=== PATIENT | male | born 1955 | race Caucasian/White ===

== ENCOUNTER 2018-08-01 11:22 | Inpatient (IN) | payer BC ==
[2018-08-01 11:47] VITALS: BMI 27.3
--- NOTE | 2018-08-01 12:00 | PDOC ---
History of Present Illness <Mirna Maldonado - Last Filed: 08/01/18 15:58> - General History Source: Patient Exam Limitations: No Limitations - History of Present Illness Initial Comments: 08/01/18 11:56 62 yo male with h/o prior tobacco use ( quit 91), no pmhx here wtih c/o intermittent chest pain last few days. has had exertional dyspnea, orthpnea. no leg swelling. 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 no h/o prior cad. no family h/o cad. did have stress test over 5 yrs ago, unsure of indication. no n/v no f/c does have cough, nonproductive white phlegm. drinks occasionally ( few times/ week). no f/c no h/o pe or dvt. no recent travel. chest pain is substernal , describes as a burning, no radiation. <Terese Chan - Last Filed: 08/01/18 16:45> - General Chief Complaint: Chest Pain Stated Complaint: CHES PAIN Time Seen by Provider: 08/01/18 11:24 Past History <Mirna Maldonado - Last Filed: 08/01/18 15:58> - Past Medical History Anemia: No Asthma: No Cancer: No Cardiac Disorders: No COPD: No CHF: No Dementia: No Diabetes: No GI Disorders: Yes (RECTAL BLEEDING) Disorders: No HTN: No Hypercholesterolemia: No Liver Disease: No Seizures: No Thyroid Disease: No - Surgical History Abdominal Surgery: No Appendectomy: No Cardiac Surgery: No Cholecystectomy: No Lung Surgery: No Neurologic Surgery: No Orthopedic Surgery: Yes (JAW WIRED DUE TO FX) - Suicide/Smoking/Psychosocial Hx Smoking History: Former smoker Have you smoked in the past 12 months: No Number of Cigarettes Smoked Daily: 0 If you are a former smoker, when did you quit?: 1990 Information on smoking cessation initiated: No Hx Alcohol Use: No Drug/Substance Use Hx: No Substance Use Type: Alcohol Hx Substance Use Treatment: No <Terese Chan - Last Filed: 08/01/18 16:45> - Past Medical History Allergies/Adverse Reactions: Allergies Allergy/AdvReac Type Severity Reaction Status Date / Time UNKNOWN ANTIBIOTIC Allergy Intermediate CHILLS Uncoded 03/18/19 11:23 Home Medications: Ambulatory Orders Aspirin [ASA -] 162 mg PO ONCE 08/01/18 Ibuprofen [Motrin -] 400 mg PO ONCE PRN 08/01/18 Review of Systems - Review of Systems Constitutional: No: Chills, Diaphoresis, Fever Respiratory: Yes: Cough, Orthopnea, Shortness of Breath Cardiac (ROS): Yes: Chest Pain Musculoskeletal: No: Back Pain, Gout, Joint Pain, Muscle Weakness Integumentary: No: Bruising, Change in Color Neurological: No: Headache, Numbness All Other Systems: Reviewed and Negative <Terese Chan - Last Filed: 08/01/18 16:45> *Physical Exam - Vital Signs Last Vital Signs Temp Pulse Resp BP Pulse Ox 98.5 F 81 20 157/86 97 08/01/18 11:23 08/01/18 13:54 08/01/18 13:54 08/01/18 13:54 08/01/18 13:54 <Mirna Maldonado - Last Filed: 08/01/18 15:58> - Vital Signs Last Vital Signs Temp Pulse Resp BP Pulse Ox 98.5 F 89 20 159/95 99 08/01/18 11:23 08/01/18 11:23 08/01/18 11:23 08/01/18 11:23 08/01/18 11:23 - Physical Exam Comments: 08/01/18 11:58 awake alert lungs clear bilaterally heart rrr no mrg abd soft no puls mass. nt nd. ext wwp no edema. no calf tenderness. 2 +_ symmetric dp pulses. nuero alert oriented x 3. skin warm and dry. <Terese Chan - Last Filed: 08/01/18 16:45> Moderate Sedation - Procedure Monitoring Vital Signs: Procedure Monitoring Vital Signs Temperature 98.5 F 08/01/18 11:23 Pulse Rate 81 08/01/18 13:54 Respiratory Rate 20 08/01/18 13:54 Blood Pressure 157/86 08/01/18 13:54 O2 Sat by Pulse Oximetry (%) 97 08/01/18 13:54 <Mirna Maldonado - Last Filed: 08/01/18 15:58> - Procedure Monitoring Vital Signs: Procedure Monitoring Vital Signs Temperature 98.5 F 08/01/18 11:23 Pulse Rate 89 08/01/18 11:23 Respiratory Rate 20 08/01/18 11:23 Blood Pressure 159/95 08/01/18 11:23 O2 Sat by Pulse Oximetry (%) 99 08/01/18 11:23 <Terese Chan - Last Filed: 08/01/18 16:45> ED Treatment Course - LABORATORY CBC & Chemistry Diagram: 08/01/18 11:59 08/01/18 11:59 - ADDITIONAL ORDERS Additional order review: Laboratory Results 08/01/18 08/01/18 08/01/18 14:25 12:00 11:59 PT with INR 11.9 Cancelled INR 1.06 Cancelled PTT (Actin FS) Cancelled Sodium Potassium Chloride Carbon Dioxide Anion Gap BUN Creatinine Creat Clearance w eGFR Random Glucose Calcium Total Bilirubin AST ALT Alkaline Phosphatase Troponin I < 0.03 Total Protein Albumin 08/01/18 11:59 PT with INR INR PTT (Actin FS) Sodium 138 Potassium 4.0 Chloride 108 H Carbon Dioxide 24 Anion Gap 6 L BUN 14 Creatinine 0.7 Creat Clearance w eGFR 115.04 Random Glucose 107 H Calcium 8.5 Total Bilirubin 0.4 AST 17 ALT 16 Alkaline Phosphatase 58 Troponin I Total Protein 6.8 Albumin 3.8 08/01/18 11:59 RBC 2.91 L MCV 77.8 L MCHC 31.6 L RDW 16.9 H MPV 7.3 L Neutrophils % 65.0 Lymphocytes % 16.2 Monocytes % 14.3 H Eosinophils % 3.9 Basophils % 0.6 <Mirna Maldonado - Last Filed: 08/01/18 15:58> - LABORATORY CBC & Chemistry Diagram: 08/01/18 11:59 08/01/18 11:59 - RADIOLOGY Radiology Studies Ordered: Category Date Time Status CHEST PA & LAT [RAD] Stat Radiology 08/01/18 11:29 Ordered <Terese Chan - Last Filed: 08/01/18 16:45> Medical Decision Making - Medical Decision Making 08/01/18 15:58 Called [facility] twice, but went to [facility]. Will need to transfer to [facility]. <Mirna Maldonado - Last Filed: 08/01/18 15:58> - Medical Decision Making 08/01/18 11:59 62 yo male with no pmhx here with c/o chest pain, and associated sob x 3 days. took two asa prior to arrival. differental copd, chf, pna, acs, angina. plan ekg labs cxr will likely require admission for tele obs. could need stress test. 08/01/18 14:59 pt with anemia hgb 7, further question reveals pt with h/o diverticulosis and hemorrhoids. has noted bright red blood per rectum recently that he attributed to hemorhoids. denies melena. no abd pain. will require admission for transfusion hgb 7, 2 units prbc ordered. microblog for admission. pt sees dr mascorro, has seen dr vandana CHEN, many years ago for colonoscopy 08/01/18 15:11 d/w dr Killian, is out of Town for CME, told to admit to hospitalist. 08/01/18 16:22 was told to consult [facility] as no GI available at [place], awaiting call back from [facility] after several calls, will transfer to [facility]. d/w dr ha who will take the admission. 08/01/18 16:44 call from [facility], states should go to service its dr montes patient. will call dilcia back to inform of error. <Terese Chan - Last Filed: 08/01/18 16:45> *DC/Admit/Observation/Transfer <Mirna Maldonado - Last Filed: 08/01/18 15:58> - Discharge Dispostion Decision to Admit order: Yes <Terese Chan - Last Filed: 08/01/18 16:45> Diagnosis at time of Disposition: Anemia, GI bleed
[2018-08-01 12:19] LABS: BASO % 0.6 % (0-2.0); EOS % 3.9 % (0-4.5); HEMATOCRIT 22.7 % (35.4-49); HEMOGLOBIN 7.2 GM/dl (11.7-16.9); LYMPH % 16.2 % (8-40); MCH 24.6 pg (25.7-33.7); MCHC 31.6 g/dl (32.0-35.9); MEAN CELL VOLUME 77.8 fl (80-96); MEAN PLT VOLUME 7.3 fl (7.5-11.1); MONO % 14.3 % (3.8-10.2); PLATELET COUNT 337 K/MM3 (134-434); RBC 2.91 M/mm3 (4.00-5.60); RDW 16.9 % (11.9-15.9); WHITE BLOOD COUNT 6.2 K/mm3 (4.0-10.8)
[2018-08-01 12:21] LABS: ADD RBC MORPHOLOGY YES
[2018-08-01 12:29] LABS: ALBUMIN 3.8 g/dl (3.4-5.0); ALK PHOS 58 U/L (45-117); ANION GAP 6 MMOL/L (8-16); BILIRUBIN,TOTAL 0.4 mg/dl (0.2-1); BLOOD UREA NITROGEN 14 mg/dl (7-18); CALCIUM 8.5 mg/dl (8.5-10); CHLORIDE 108 mmol/L (98-107); CO2 24 mmol/L (21-32); CREATININE 0.7 mg/dl (0.55-1.3); GLUCOSE,RANDOM 107 mg/dl (74-106); SGOT/AST 17 U/L (15-37); SGPT/ALT 16 U/L (13-61); SODIUM 138 mmol/L (136-145); TOT PROT 6.8 g/dl (6.4-8.2)
[2018-08-01 12:56] LABS: ANISOCYTOSIS 1+; OVALOCYTE 1+
[2018-08-01 15:10] LABS: INR 1.06 (0.82-1.09); PROTHROMBIN TIME (PATIENT) 11.9 SEC (10.2-13.0)
[2018-08-01] MEDS ORDERED: ASPIRIN 81 MG CHEWABLE TABLETS PO ONE (16:48)
[2018-08-01] MEDS ORDERED: NITROGLYCERIN SUBLINGUAL 1/150 0.4 MG TAB SL PRN (16:51)
[2018-08-01] MEDS ORDERED: ACETAMINOPHEN 325 MG TABLET (FP) PO PRN (16:51)
--- NOTE | 2018-08-01 17:27 | HP ---
Admitting History and Physical - Primary Care Physician PCP: Dewayne Killian - Admission Chief Complaint: chest pain, SOB History of Present Illness: 62 year old Male with h/o diverticulosis and hemorrhoids reports 10days of blood with most bowel movements. Pt states he has a h/o hemorrhoids and figured that this was the reason for his blood loss. He reports similar symptoms 1 year ago in jun 2017 after starting Mobic for osteoarthritis, which resulted in rectal bleeding, symptoms resolved after discontinuing medication. His last C- scope was in 2013 and revealed diverticulosis and internal hemorrhoids. Mr. Miller reports 3 days after noticing moderate- large amount of bright red blood with bowel movements, he began to experience shortness of breath with activity. His symptoms later progressed to " waking from sleep, gasping for air " 10 mid-sternal chest burning, + frontal headache and lightheadedness. He denies N/V/palpitations. 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 In ED: BP 157/86mmHg, HR 81, T 98.5, RR 20, O2 sat 97%. Labs reveal: H/H 7.2/22.7 Stool for occult blood x 1 negative. CXR: no acute findings Pt ordered for 2units PRBC and admitted to [facility] for further management History Source: Patient Limitations to Obtaining History: No Limitations - Past Surgical History Additional Past Surgical History: Left zygomatic process fracture Laryngeal biopsy - Smoking History Smoking history: Former smoker Have you smoked in the past 12 months: No Aproximately how many cigarettes per day: 0 (2PPD x 10yrs) If you are a former smoker, when did you quit?: 1990 - Alcohol/Substance Use Hx Alcohol Use: Yes (4 glasses of vodka four nights per week) Number of Drinks Daily: 4 History of Substance Use: reports: None - Social History Usual Living Arrangement: Yes: Alone ADL: Independent Occupation: Technology Solutions Architect History of Recent Travel: No Other Social History: . Exercise: none Home Medications - Allergies Allergies/Adverse Reactions: Allergies Allergy/AdvReac Type Severity Reaction Status Date / Time No Known Allergies Allergy Verified 08/01/18 23:23 - Home Medications Home Medications: Ambulatory Orders Aspirin [ASA -] 162 mg PO ONCE 08/01/18 Ibuprofen [Motrin -] 400 mg PO ONCE PRN 08/01/18 Family Disease History - Family Disease History Family Disease History: Other: Father ( (59) throat cancer), Mother ( alive (88) well), Brother (alive (66) DMII), Sister (alive (53) drug use) Review of Systems - Review of Systems Constitutional: reports: Lethargy, Weakness Cardiovascular: reports: Chest Pain, Shortness of Breath Respiratory: reports: SOB on Exertion Gastrointestinal: reports: Rectal Bleeding Genitourinary: reports: No Symptoms Breasts: reports: No Symptoms Reported Musculoskeletal: reports: Muscle Weakness Integumentary: reports: No Symptoms Neurological: reports: Dizziness, Weakness Endocrine: reports: No Symptoms Hematology/Lymphatic: reports: No Symptoms Psychiatric: reports: No Symptoms Physical Examination Vital Signs: Vital Signs Temperature 98.5 F 08/01/18 11:23 Pulse Rate 81 08/01/18 13:54 Respiratory Rate 20 08/01/18 13:54 Blood Pressure 157/86 08/01/18 13:54 O2 Sat by Pulse Oximetry (%) 97 08/01/18 13:54 Constitutional: Yes: No Distress, Calm Eyes: Yes: Conjunctiva Clear, EOM Intact, PERRL HENT: Yes: Atraumatic, Normocephalic Neck: Yes: Supple, Trachea Midline Cardiovascular: Yes: Regular Rate and Rhythm Respiratory: Yes: Regular, CTA Bilaterally Gastrointestinal: Yes: Normal Bowel Sounds, Soft, Tenderness (LLQ) ...Rectal Exam: Yes: Guaiac Negative Renal/: Yes: WNL Breast(s): Yes: WNL Musculoskeletal: Yes: WNL Extremities: Yes: WNL Edema: No Peripheral Pulses WNL: Yes Peripheral Pulses: Left Radial: 2+, Right Radial: 2+, Left Doralis Pedis: 2+, Right Dorsalis Pedis: 2+ Integumentary: Yes: WNL Neurological: Yes: Alert, Oriented ...Motor Strength: WNL Psychiatric: Yes: Alert, Oriented Labs: CBC, BMP 08/01/18 11:59 08/01/18 11:59 Imaging - Results X-ray: Report Reviewed (CXR 08/01/2018 No acute chest pathology. Mild hyperaeration. No comparison studies.) Problem List - Problems (1) Elevated blood pressure reading Assessment/Plan: start losartan 50mg Code(s): R03.0 - ELEVATED BLOOD-PRESSURE READING, W/O DIAGNOSIS OF HTN (2) Prophylactic measure Assessment/Plan: SCDs OOB to chair Ambulate as tolerated senna/colace Code(s): Z29.9 - ENCOUNTER FOR PROPHYLACTIC MEASURES, UNSPECIFIED (3) Chest pain Assessment/Plan: cardiology consulted trend cardiac enzymes Cardiology consulted EKG PRN Code(s): R07.9 - CHEST PAIN, UNSPECIFIED (4) Shortness of breath on exertion Assessment/Plan: 2L NC PRN assess for symptom improvement once Hgb starts uptrending Code(s): R06.02 - SHORTNESS OF BREATH (5) Anemia Assessment/Plan: GI consult (Dr. Rivera) for bright red blood with bowel movement Code(s): D64.9 - ANEMIA, UNSPECIFIED (6) GI bleed Assessment/Plan: NPO gentle hydration with NS Protonix 40mg IVP BID Awaiting recommendations from GI Code(s): K92.2 - GASTROINTESTINAL HEMORRHAGE, UNSPECIFIED Assessment/Plan DISPO: full code Visit type - Emergency Visit Emergency Visit: Yes ED Registration Date: 08/01/18 Care time: The patient presented to the Emergency Department on the above date and was hospitalized for further evaluation of their emergent condition. - New Patient This patient is new to me today: No - Critical Care Critical Care patient: No
[2018-08-01] MEDS: SODIUM CHLORIDE 1,000 ML IV SCH (17:31)
--- NOTE | 2018-08-01 22:52 | EKG ---
Test Reason : Blood Pressure : / mmHG Vent. Rate : 088 BPM Atrial Rate : 088 BPM P-R Int : 140 ms QRS Dur : 086 ms QT Int : 378 ms P-R-T Axes : 059 -21 018 degrees QTc Int : 457 ms NORMAL SINUS RHYTHM SEPTAL INFARCT , AGE UNDETERMINED ABNORMAL ECG NO PREVIOUS ECGS AVAILABLE Confirmed by MONIQUE MILLAN, DK ([id number]) on 08/01/2018 10:52:06 PM Referred By: DR STOLL Confirmed By:DK AMAYA MD
[2018-08-01] MEDS ORDERED: METOCLOPRAMIDE HCL INJECTION 10 MG/2 ML VIAL IVPUSH PRN (23:24)
[2018-08-01] MEDS ORDERED: SENNOSIDES 8.6MG TABLET (FP) PO SCH (23:30)
[2018-08-02] MEDS: PANTOPRAZOLE SODIUM 40 MG VIAL IVPUSH SCH ×3 (01:28→21:44)
[2018-08-02] MEDS: DOCUSATE SODIUM 100 MG CAPSULE (FP) PO SCH ×3 (01:28→21:43)
[2018-08-02 06:30] LABS: HEMATOCRIT 26.5 % (35.4-49); HEMOGLOBIN 8.9 GM/dL (11.7-16.9); MCH 26.3 pg (25.7-33.7); MCHC 33.6 g/dl (32.0-35.9); MEAN CELL VOLUME 78.2 fl (80-96); MEAN PLT VOLUME 7.3 fl (7.5-11.1); PLATELET COUNT 275 K/MM3 (134-434); RBC 3.39 M/mm3 (4.00-5.60); RDW 17.8 % (11.9-15.9); WHITE BLOOD COUNT 6.9 K/mm3 (4.0-10.0)
[2018-08-02 07:17] LABS: ALBUMIN 3.5 g/dl (3.4-5.0); ALK PHOS 61 U/L (45-117); ANION GAP 6 MMOL/L (8-16); BILIRUBIN,TOTAL 1.9 mg/dL (0.2-1); BLOOD UREA NITROGEN 9 mg/dL (7-18); CHLORIDE 106 mmol/L (98-107); CHOLESTEROL 142 mg/dL (50-200); CO2 27 mmol/L (21-32); CREATININE 0.7 mg/dL (0.55-1.3); GLUCOSE,RANDOM 87 mg/dL (74-106); HDL CHOLESTEROL 64 mg/dL (40-60); N-TERMINAL BNP 160.6 pg/ml (5-125); PHOSPHOROUS 3.7 mg/dL (2.5-4.9); POTASSIUM 4.2 mmol/L (3.5-5.1); SGOT/AST 13 U/L (15-37); SGPT/ALT 17 U/L (13-61); SODIUM 139 mmol/L (136-145); TOT PROT 6.8 g/dl (6.4-8.2); TRIGLYCERIDES 69 mg/dL (0-150)
--- NOTE | 2018-08-02 08:56 | PN ---
Physical Exam: SUBJECTIVE: Patient seen and examined at the bedside. sitting up in bed, in no acute distress. has had no bm today, has been having symptoms of fatigue for about a week. chronically uses NSAIDS for back pain. 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 denies chest pain or shortness of breath OBJECTIVE: tylenol prn s/p 2 units of prbc with low but stable hmg/hct start clears await gi recommendations Vital Signs Period Temp Pulse Resp BP Sys/Anna Pulse Ox Last 24 Hr 98.0 F-98.9 F 57-98 18-20 117-169/65-97 97-100 GENERAL: The patient is awake, alert, and fully oriented, in no acute distress. HEAD: Normal with no signs of trauma. EYES: PERRL, extraocular movements intact, sclera anicteric, conjunctiva clear. No ptosis. ENT: Ears normal, nares patent, oropharynx clear without exudates, moist mucous membranes. NECK: Trachea midline, full range of motion, supple. LUNGS: Breath sounds equal, clear to auscultation bilaterally HEART: Regular rate and rhythm ABDOMEN: Soft, nontender, nondistended, normoactive bowel sounds, no guarding, no rebound, no hepatosplenomegaly, no masses. EXTREMITIES:no edema. NEUROLOGICAL: Normal speech, gait not observed. PSYCH: Normal mood, normal affect. SKIN: Warm, dry, normal turgor, no rashes or lesions noted Laboratory Results - last 24 hr 08/01/18 08/01/18 08/01/18 11:59 11:59 11:59 WBC 6.2 RBC 2.91 L Hgb 7.2 L Hct 22.7 L MCV 77.8 L MCH 24.6 L MCHC 31.6 L RDW 16.9 H Plt Count 337 MPV 7.3 L Absolute Neuts (auto) 4.1 Neutrophils % 65.0 Lymphocytes % 16.2 Monocytes % 14.3 H Eosinophils % 3.9 Basophils % 0.6 Hypochromia 2+ Polychromasia 1+ Anisocytosis 1+ Ovalocytes 1+ PT with INR INR PTT (Actin FS) Sodium 138 Potassium 4.0 Chloride 108 H Carbon Dioxide 24 Anion Gap 6 L BUN 14 Creatinine 0.7 Creat Clearance w eGFR 115.04 Random Glucose 107 H Hemoglobin A1c % Calcium 8.5 Phosphorus Magnesium Total Bilirubin 0.4 AST 17 ALT 16 Alkaline Phosphatase 58 Creatine Kinase Troponin I < 0.03 B-Natriuretic Peptide Total Protein 6.8 Albumin 3.8 Triglycerides Cholesterol Total LDL Cholesterol HDL Cholesterol Stool Occult Blood Blood Type Antibody Screen Crossmatch 08/01/18 08/01/18 08/01/18 12:00 14:25 14:25 WBC RBC Hgb Hct MCV MCH MCHC RDW Plt Count MPV Absolute Neuts (auto) Neutrophils % Lymphocytes % Monocytes % Eosinophils % Basophils % Hypochromia Polychromasia Anisocytosis Ovalocytes PT with INR Cancelled 11.9 INR Cancelled 1.06 PTT (Actin FS) Cancelled Sodium Potassium Chloride Carbon Dioxide Anion Gap BUN Creatinine Creat Clearance w eGFR Random Glucose Hemoglobin A1c % Calcium Phosphorus Magnesium Total Bilirubin AST ALT Alkaline Phosphatase Creatine Kinase Troponin I B-Natriuretic Peptide Total Protein Albumin Triglycerides Cholesterol Total LDL Cholesterol HDL Cholesterol Stool Occult Blood Blood Type O NEGATIVE Antibody Screen Crossmatch 08/01/18 08/01/18 08/02/18 14:32 18:25 05:30 WBC 6.9 RBC 3.39 L Hgb 8.9 L Hct 26.5 L MCV 78.2 L MCH 26.3 MCHC 33.6 RDW 17.8 H Plt Count 275 MPV 7.3 L Absolute Neuts (auto) Neutrophils % Lymphocytes % Monocytes % Eosinophils % Basophils % Hypochromia Polychromasia Anisocytosis Ovalocytes PT with INR INR PTT (Actin FS) Sodium Potassium Chloride Carbon Dioxide Anion Gap BUN Creatinine Creat Clearance w eGFR Random Glucose Hemoglobin A1c % Calcium Phosphorus Magnesium Total Bilirubin AST ALT Alkaline Phosphatase Creatine Kinase Troponin I B-Natriuretic Peptide Total Protein Albumin Triglycerides Cholesterol Total LDL Cholesterol HDL Cholesterol Stool Occult Blood Negative Blood Type O NEGATIVE Antibody Screen Negative Crossmatch See Detail 08/02/18 08/02/18 05:30 05:30 WBC RBC Hgb Hct MCV MCH MCHC RDW Plt Count MPV Absolute Neuts (auto) Neutrophils % Lymphocytes % Monocytes % Eosinophils % Basophils % Hypochromia Polychromasia Anisocytosis Ovalocytes PT with INR INR PTT (Actin FS) Sodium 139 Potassium 4.2 Chloride 106 Carbon Dioxide 27 Anion Gap 6 L BUN 9 Creatinine 0.7 Creat Clearance w eGFR 115.04 Random Glucose 87 Hemoglobin A1c % 5.2 Calcium 8.0 L Phosphorus 3.7 Magnesium 2.0 Total Bilirubin 1.9 H AST 13 L ALT 17 Alkaline Phosphatase 61 Creatine Kinase 70 Troponin I < 0.02 B-Natriuretic Peptide 160.6 H Total Protein 6.8 Albumin 3.5 Triglycerides 69 Cholesterol 142 Total LDL Cholesterol 70 HDL Cholesterol 64 H Stool Occult Blood Blood Type Antibody Screen Crossmatch Active Medications Generic Name Dose Route Start Last Admin Trade Name Freq PRN Reason Stop Dose Admin Acetaminophen 650 mg 08/01/18 16:51 Tylenol - PO Q6H PRN FEVER Docusate Sodium 100 mg 08/01/18 23:30 08/02/18 01:28 Colace - PO 100 mg BID YESSENIA Administration Sodium Chloride 1,000 mls @ 42 mls/hr 08/01/18 17:00 08/01/18 17:31 Normal Saline - IV 42 mls/hr ASDIR YESSENIA Administration Losartan Potassium 25 mg 08/02/18 10:00 Cozaar - PO DAILY YESSENIA Metoclopramide HCl 10 mg 08/01/18 23:24 Reglan Injection - IVPUSH Q8H PRN NAUSEA AND/OR VOMITING Nitroglycerin 0.4 mg 08/01/18 16:51 Nitrostat - SL Q5M PRN FOR CHEST PAIN Pantoprazole Sodium 40 mg 08/02/18 00:30 08/02/18 01:28 Protonix Iv IVPUSH 40 mg BID YESSENIA Administration Senna 2 tab 08/01/18 23:30 08/02/18 01:28 Senna - PO 2 tab HS YESSENIA Administration ASSESSMENT/PLAN: Patient is a 62 year old male with past medical history of diverticulosis and hemorrhoids who comes to the ED with c/o of 10 days of blood with most bowel movements. His last C-scope was in 2013 and revealed diverticulosis and internal hemorrhoids. GI: GI bleed/Blood loss anemia presents with symptomatic anemia and hmt/hct 7.2/22 stool occult blood negative. s/p 2 units of prbc with hmg hct now 8.9/26.5. protonix bid monitor output clears GI consulted Card: hypertension On no home meds, denies hx of htn started on lopressor here, monitor bp troponins negative to date fen clears monitor electrolytes no ivf prophy no a/c 2/2 to blood loss anemia protonix bid Visit type - Emergency Visit Emergency Visit: Yes ED Registration Date: 08/01/18 Care time: The patient presented to the Emergency Department on the above date and was hospitalized for further evaluation of their emergent condition. - New Patient This patient is new to me today: Yes Date on this admission: 08/02/18 - Critical Care Critical Care patient: No - Discharge Referral Referred to [facility] No
[2018-08-02] MEDS: LOSARTAN POTASSIUM 25 MG TABLET PO SCH (09:17)
--- NOTE | 2018-08-02 12:29 | CON.CARD ---
Consult Consult Specialty:: Cardiology Referred by:: Hospitalist Reason for Consultation:: Cardiac evaluation - History of Present Illness Chief Complaint: Shortness of breath and chest discomfort History of Present Illness: Patient is a 62 year old male with underlying history of diverticulosis and hemorrhoids who presents with blood loss during bowel movement. He states that he was given Mobic 1 year ago for osteoarthritis and had rectal bleeding which stopped after discontinuing the medication. He reports moderate to large amount of BRBPR with bowel movement. He also complained of mid sternal chest discomfort and shortness of breath with activity. Upon presentation in the ED, he was found with H/H of 7.2/22.7. He was given 2 units of PRBC with some improvement in his symptoms. Currently he denies chest pain, SOB or palpitations. He denies paroxysmal nocturnal dyspnea or orthopnea. He denies fever or chills. He denies nausea, vomiting, diarrhea or abdominal pain. He denies headache or lightheadedness. - History Source History Provided By: Patient, Medical Record Limitations to Obtaining History: No Limitations - Past Medical History Gastrointestinal: Yes: Diverticulosis, GI Bleed, Hemorrhoids - Past Surgical History Past Surgical History: Yes: Colonoscopy - Alcohol/Substance Use Hx Alcohol Use: Yes (4 glasses of vodka four nights per week) Number of Drinks Daily: 4 History of Substance Use: reports: None - Smoking History Smoking history: Former smoker Have you smoked in the past 12 months: No Aproximately how many cigarettes per day: 0 (2PPD x 10yrs) If you are a former smoker, when did you quit?: 1990 - Social History ADL: Independent Occupation: Imaging Tech History of Recent Travel: No Home Medications - Allergies Allergies/Adverse Reactions: Allergies Allergy/AdvReac Type Severity Reaction Status Date / Time No Known Allergies Allergy Verified 08/01/18 23:23 - Home Medications Home Medications: Ambulatory Orders Aspirin [ASA -] 162 mg PO ONCE 08/01/18 Ibuprofen [Motrin -] 400 mg PO ONCE PRN 08/01/18 Family Disease History - Family Disease History Family Disease History: Other: Father ( (59) throat cancer), Mother ( alive (88) well), Brother (alive (66) DMII), Sister (alive (53) drug use) Review of Systems - Review of Systems Constitutional: denies: Chills, Fever Cardiovascular: reports: Chest Pain, Shortness of Breath. denies: Palpitations Respiratory: reports: SOB. denies: Cough, Hemoptysis, Orthopnea, PND Gastrointestinal: reports: Rectal Bleeding. denies: Abdominal Pain, Constipation, Diarrhea, Melena, Nausea, Vomiting Musculoskeletal: denies: Back Pain Neurological: denies: Dizziness, Headache, Seizure, Syncope Vital Signs: Vital Signs Temperature 98.5 F 08/02/18 10:00 Pulse Rate 88 08/02/18 10:00 Respiratory Rate 20 08/02/18 10:00 Blood Pressure 157/79 08/02/18 10:00 O2 Sat by Pulse Oximetry (%) 98 08/02/18 09:00 Eyes: Yes: PERRL HENT: Yes: Atraumatic Neck: Yes: Supple Respiratory: Yes: CTA Bilaterally Gastrointestinal: Yes: Normal Bowel Sounds, Soft. No: Tenderness Cardiovascular: Yes: Regular Rate and Rhythm. No: Gallop JVD: No PMI: Non-Displaced Heart Sounds: Yes: S1, S2 Murmur: No: Systolic Murmur, Diastolic Murmur Edema: No - Other Data Labs, Other Data: CBC, BMP 08/02/18 05:30 08/02/18 05:30 INR, PTT INR 1.06 (0.82-1.09) 08/01/18 14:25 Troponin, BNP 08/01/18 08/02/18 11:59 05:30 Troponin I < 0.03 < 0.02 B-Natriuretic Peptide 160.6 H NSR, no ST-T abnormality Echo: Pending Imaging - Results Chest X-ray: Report Reviewed (Unremarkable) EKG: Report Reviewed Problem List - Problems (1) Diverticulosis Code(s): K57.90 - DVRTCLOS OF INTEST, PART UNSP, W/O PERF OR ABSCESS W/O BLEED (2) Hemorrhoid Code(s): K64.9 - UNSPECIFIED HEMORRHOIDS (3) Anemia Code(s): D64.9 - ANEMIA, UNSPECIFIED (4) Chest pain Code(s): R07.9 - CHEST PAIN, UNSPECIFIED (5) GI bleed Code(s): K92.2 - GASTROINTESTINAL HEMORRHAGE, UNSPECIFIED (6) Shortness of breath on exertion Code(s): R06.02 - SHORTNESS OF BREATH Assessment/Plan 1. GI bleed due to hemorrhoids, underlying diverticulosis 2. Chest pain and SOB due to anemia PLAN: 1. Proceed with GI work up cardiac standpoint. No absolute contraindication in view of absence of ischemic symptoms, decompensated congestive heart failure or malignant arrhythmia 2. Transfuse PRBC as needed and follow CBC 3. Echocardiography to assess LV/RV and valvular function Further plans are to follow Selwyn Mcarthur MD
--- NOTE | 2018-08-02 14:50 | ECHO ---
Name: DIAMOND VILLA Exam:Adult Echocardiogram Study Date: 08/02/2018 12:55 PM Age: 62 yrs Reason For Study: setting of sympomatic anemia Height: 69 in Weight: 183 lb BSA: 2.0 m2 MMode/2D Measurements & Calculations IVSd: 0.84 cm Ao root diam: 3.3 cm LVIDd: 4.2 cm LA dimension: 3.6 cm LVIDs: 3.1 cm ACS: 2.2 cm LVPWd: 1.2 cm IVSs: 1.2 cm LVPWs: 1.3 cm EDV(Teich): 80.3 ml ESV(Teich): 37.3 ml Doppler Measurements & Calculations MV E max tyrel: 70.3 cm/sec Ao V2 max: 154.6 cm/sec MV A max tyrel: 62.7 cm/sec Ao max P.6 mmHg MV E/A: 1.1 Ao V2 mean: 107.1 cm/sec Ao mean P.3 mmHg Ao V2 VTI: 30.2 cm MR max tyrel: 530.3 cm/sec TR max tyrel: 283.9 cm/sec MR max P.6 mmHg TR max P.2 mmHg PI end-d tyrel: 95.0 cm/sec Med Peak E' Tyrel: 6.6 cm/sec Med E/e': 10.6 Lat Peak E' Tyrel: 8.6 cm/sec Lat E/e': 8.2 Procedure A complete two-dimensional transthoracic echocardiogram was performed (2D, M-mode, Doppler and color flow Doppler). Left Ventricle The left ventricle is normal in size. There is borderline concentric left ventricular hypertrophy. Le ft ventricular systolic function is normal. Ejection Fraction = 60%. The transmitral spectral Doppler fl ow pattern is suggestive of impaired LV relaxation. The left ventricular wall motion is normal. Right Ventricle The right ventricle is normal in size and function. Atria Normal left and right atrial size and function. Mitral Valve The mitral valve is normal in structure and function. There is trace to mild mitral regurgitation. Tricuspid Valve The tricuspid valve is normal in structure and function. There is trace tricuspid regurgitation. Righ t ventricular systolic pressure is 37 mmhg. Aortic Valve There is trivial aortic valve thickening. No aortic regurgitation is present. Pulmonic Valve The pulmonic valve is not well visualized. Great Vessels The aortic root is normal size. Pericardium/Pleura There is no pericardial effusion. There is no pleural effusion. Interpretation Summary The left ventricle is normal in size. There is borderline concentric left ventricular hypertrophy. Left ventricular systolic function is normal. Ejection Fraction = 60%. The right ventricle is normal in size and function. There is trace tricuspid regurgitation. Right ventricular systolic pressure is 37 mmhg. There is trivial aortic valve thickening. There is trace to mild mitral regurgitation. MD Jeremías Gerardo 08/02/2018 02:50 PM
[2018-08-02] MEDS: SODIUM CHLORIDE 1,000 ML IV SCH (16:44)
--- NOTE | 2018-08-02 17:12 | CON.GI ---
Consult - History of Present Illness Chief Complaint: GI consult dictated. prep for colonoscopy / egd tomorrow. clear ;liquid diet. npo midnight - Alcohol/Substance Use Hx Alcohol Use: Yes (4 glasses of vodka four nights per week) Number of Drinks Daily: 4 History of Substance Use: reports: None - Smoking History Smoking history: Former smoker Have you smoked in the past 12 months: No Aproximately how many cigarettes per day: 0 (2PPD x 10yrs) If you are a former smoker, when did you quit?: 1990 - Social History ADL: Independent Occupation: [employer] History of Recent Travel: No Home Medications - Allergies Allergies/Adverse Reactions: Allergies Allergy/AdvReac Type Severity Reaction Status Date / Time No Known Allergies Allergy Verified 08/01/18 23:23 - Home Medications Home Medications: Ambulatory Orders Aspirin [ASA -] 162 mg PO ONCE 08/01/18 Ibuprofen [Motrin -] 400 mg PO ONCE PRN 08/01/18 Family Disease History - Family Disease History Family Disease History: Other: Father ( (59) throat cancer), Mother ( alive (88) well), Brother (alive (66) DMII), Sister (alive (53) drug use) Physical Exam-GI Vital Signs: Vital Signs Temperature 98.7 F 08/02/18 14:05 Pulse Rate 63 08/02/18 14:05 Respiratory Rate 20 08/02/18 14:05 Blood Pressure 135/75 08/02/18 14:05 O2 Sat by Pulse Oximetry (%) 98 08/02/18 09:00 Labs: CBC, BMP 08/02/18 05:30 08/02/18 05:30 INR, PTT INR 1.06 (0.82-1.09) 08/01/18 14:25
[2018-08-02] MEDS ORDERED: [UNRECOGNIZED DRUG - OTHER] PO ONE (18:18)
[2018-08-02] MEDS ORDERED: KCL PO ONE (18:18)
[2018-08-02] MEDS ORDERED: NACL PO ONE (18:18)
[2018-08-02] MEDS ORDERED: PEG 3350/NA SULF BICARB CL/KCL 4000 ML SOLN.RECON PO ONE (19:30)
--- NOTE | 2018-08-02 20:31 | CONS ---
GASTROINTESTINAL CONSULTATION DATE OF CONSULTATION: DATE OF DICTATION: 08/02/2018 The patient is a pleasant, 62-year-old man with a past medical history of diverticulosis and hemorrhoids. Apparently, he had a colonoscopy in 2012 or 2013, which revealed diverticulosis. He admits to having approximately a week of intermittent episodes of hematochezia. He admits to taking Mobic for osteoarthritis a year ago and having similar symptoms. He presented to the emergency room after he developed shortness of breath and chest pain over the past couple of days and lightheadedness with near syncope. In the ER, his hemoglobin was noted to be 7.2 with a hematocrit of 22.7. He denies any abdominal pain, hematemesis, nausea, vomiting, reflux symptoms, weight loss. He has never had an upper endoscopy in the past. PAST MEDICAL AND SURGICAL HISTORY: As listed in the HPI with the addition of laryngeal biopsy and a left zygomatic process fracture. SOCIAL HISTORY: He is a former smoker, quit in 1990. He drinks 4 glasses of vodka 4 times per week. No substance abuse. FAMILY HISTORY: There is no history of GI or gynecological malignancy. HOME MEDICATIONS: Aspirin and Motrin. ALLERGIES: No known drug allergies. REVIEW OF SYSTEMS: Negative except for pertinent positives in the HPI. PHYSICAL EXAMINATION: Vital Signs: Temperature 98, pulse 63, blood pressure 135/75, respiratory rate 12, pulse oximetry 98% on room air. General: No acute distress. HEENT: Anicteric sclera. Cardiovascular: S1, S2. Regular rate and rhythm. Lungs: Bilaterally clear to auscultation. Abdomen: Soft and nontender. Extremities: No edema. LABORATORY DATA: White blood cell count 6.9, hemoglobin 8.9 and hematocrit 26 (that is after 2 units of blood), admission hemoglobin 7.2 and hematocrit 22, MCV 78, platelet count 275. INR 1.06. Sodium 139, potassium 4.2, BUN 9, creatinine 0.7, total bilirubin 1.9, AST 13, ALT 17. Cardiac enzymes are negative x2. Chest x-ray revealed no acute chest pathology. IMPRESSION: Hematochezia with associated chest pain in the setting of antiplatelet regimen and non-steroidal anti-inflammatory drug therapy. Symptoms are most likely secondary to a lower gastrointestinal bleed, diverticulosis, or hemorrhoid. However, upper gastrointestinal source cannot be completely excluded at this time considering he has been on antiplatelet therapy as well as non-steroidal anti-inflammatory drug therapy. Hemodynamically stable without sign of an overt gastrointestinal bleed. RECOMMENDATION: Clear-liquid diet, PPI therapy. Will prep him for colonoscopy tomorrow and upper endoscopy. Cardiology followup with risk stratification; n.p.o. midnight. Risks of the procedure were explained in detail including, but not limited to, perforation, sedation, missed lesion, infection, and bleeding. DO SLIME LISA/[id number]
[2018-08-02] MEDS ORDERED: BISACODYL 5 MG TABLET.DR (FP) PO ONE (22:00)
[2018-08-03 06:44] LABS: BASO % 1.4 % (0-2.0); EOS % 4.4 % (0-4.5); HEMATOCRIT 28.6 % (35.4-49); HEMOGLOBIN 9.5 GM/dL (11.7-16.9); LYMPH % 16.2 % (8-40); MCH 25.7 pg (25.7-33.7); MCHC 33.2 g/dl (32.0-35.9); MEAN CELL VOLUME 77.4 fl (80-96); MEAN PLT VOLUME 7.3 fl (7.5-11.1); MONO % 14.6 % (3.8-10.2); NEUT % 63.4 % (42.8-82.8); PLATELET COUNT 295 K/MM3 (134-434); RBC 3.69 M/mm3 (4.00-5.60); RDW 17.8 % (11.9-15.9); WHITE BLOOD COUNT 6.8 K/mm3 (4.0-10.0)
[2018-08-03] MEDS: LOSARTAN POTASSIUM 25 MG TABLET PO SCH (09:40)
[2018-08-03] MEDS: PANTOPRAZOLE SODIUM 40 MG VIAL IVPUSH SCH (09:40)
--- NOTE | 2018-08-03 10:13 | PN ---
Physical Exam: SUBJECTIVE: Patient seen and examined at the bedside feels better. OBJECTIVE: for colonoscopy / egd today hmg/hct stable s/p 2 units of prbc with low but stable hmg/hct Vital Signs Period Temp Pulse Resp BP Sys/Anna Pulse Ox Last 24 Hr 97.8 F-98.7 F 63-74 20-20 118-149/60-81 100 GENERAL: The patient is awake, alert, and fully oriented, in no acute distress. HEAD: Normal with no signs of trauma. EYES: PERRL, extraocular movements intact, sclera anicteric, conjunctiva clear. No ptosis. ENT: Ears normal, nares patent, oropharynx clear without exudates, moist mucous membranes. NECK: Trachea midline, full range of motion, supple. LUNGS: Breath sounds equal, clear to auscultation bilaterally HEART: Regular rate and rhythm ABDOMEN: Soft, nontender, nondistended, normoactive bowel sounds, no guarding, no rebound, no hepatosplenomegaly, no masses. EXTREMITIES:no edema. NEUROLOGICAL: Normal speech, gait not observed. PSYCH: Normal mood, normal affect. SKIN: Warm, dry, normal turgor, no rashes or lesions noted Laboratory Results - last 24 hr 08/01/18 08/03/18 14:32 05:30 WBC 6.8 RBC 3.69 L Hgb 9.5 L Hct 28.6 L MCV 77.4 L MCH 25.7 MCHC 33.2 RDW 17.8 H Plt Count 295 MPV 7.3 L Absolute Neuts (auto) 4.3 Neutrophils % 63.4 Lymphocytes % 16.2 Monocytes % 14.6 H Eosinophils % 4.4 Basophils % 1.4 Nucleated RBC % 0 Blood Type O NEGATIVE Antibody Screen Negative Crossmatch See Detail Active Medications Generic Name Dose Route Start Last Admin Trade Name Freq PRN Reason Stop Dose Admin Acetaminophen 650 mg 08/01/18 16:51 Tylenol - PO Q6H PRN FEVER Docusate Sodium 100 mg 08/01/18 23:30 08/02/18 21:43 Colace - PO 100 mg BID YESSENIA Administration Losartan Potassium 25 mg 08/02/18 10:00 08/03/18 09:40 Cozaar - PO 25 mg DAILY YESSENIA Administration Metoclopramide HCl 10 mg 08/01/18 23:24 Reglan Injection - IVPUSH Q8H PRN NAUSEA AND/OR VOMITING Nitroglycerin 0.4 mg 08/01/18 16:51 Nitrostat - SL Q5M PRN FOR CHEST PAIN Pantoprazole Sodium 40 mg 08/02/18 00:30 08/03/18 09:40 Protonix Iv IVPUSH 40 mg BID YESSENIA Administration Senna 2 tab 08/01/18 23:30 08/02/18 01:28 Senna - PO 2 tab HS YESSENIA Administration ASSESSMENT/PLAN: Patient is a 62 year old male with past medical history of diverticulosis and hemorrhoids who comes to the ED with c/o of 10 days of blood with most bowel movements. His last C-scope was in 2013 and revealed diverticulosis and internal hemorrhoids. GI: GI bleed/Blood loss anemia, presents with symptomatic anemia and hmt/hct 7.2/22 stool occult blood negative. s/p 2 units of prbc with hmg hct now 9.5/28.6 protonix bid monitor output npo for colonoscopy and egd today Card: hypertension On no home meds, denies hx of htn started on lopressor here, monitor bp troponins negative to date fen npo monitor electrolytes no ivf prophy no a/c 2/2 to blood loss anemia protonix bid Visit type - Emergency Visit Emergency Visit: Yes ED Registration Date: 08/01/18 Care time: The patient presented to the Emergency Department on the above date and was hospitalized for further evaluation of their emergent condition. - New Patient This patient is new to me today: No - Critical Care Critical Care patient: No - Discharge Referral Referred to [facility] Med P.C.: No
--- NOTE | 2018-08-03 14:24 | PN ---
Progress Note (short form) - Note Progress Note: EGD and colonoscopy performed today. EGD revealing antral and duodenal bulb erythema, biopsies taken r/o H pylori. Diminutive gastric body polyps likely fundic gland,biopsied. Otherwise normal EGD. Colonoscopy revealing sigmoid diverticulosis with surrounding patchy erythema and erosions, ?segmental colitis associated with diverticular disease vs prep related, biopsies taken. Internal/external hemorrhoids also seen, likely source of intermittent rectal bleeding. See scanned reports for full details. Recommendations: -Continue to closely monitor Hb and for evidence of bleeding -Follow up pathology results -Avoid NSAIDs -While hemorrhoidal bleeding could cause significant anemia with microcytosis, recommend check iron studies/ferritin on pretransfusion labs if possible. Pt may require capsule endoscopy for further evaluation. -Outpatient GI follow up on discharge Discussed with patient after the procedure.
--- NOTE | 2018-08-03 14:29 | PN ---
Progress Note, Physician History of Present Illness: Chest pain and dyspnea resolved post transfusion, Hgb stable, EGD and colonoscopy performed today. EGD revealing antral and duodenal bulb erythema, biopsies taken r/o H pylori. Diminutive gastric body polyps likely fundic gland , biopsied. Otherwise normal EGD. Colonoscopy revealing sigmoid diverticulosis with surrounding patchy erythema and erosions, ?segmental colitis associated with diverticular disease vs prep related, biopsies taken. Internal/external hemorrhoids also seen, likely source of intermittent rectal bleeding. - Current Medication List Current Medications: Active Medications Acetaminophen (Tylenol -) 650 mg PO Q6H PRN PRN Reason: FEVER Docusate Sodium (Colace -) 100 mg PO BID [facility] Last Admin: 08/02/18 21:43 Dose: 100 mg Losartan Potassium (Cozaar -) 25 mg PO DAILY [facility] Last Admin: 08/03/18 09:40 Dose: 25 mg Metoclopramide HCl (Reglan Injection -) 10 mg IVPUSH Q8H PRN PRN Reason: NAUSEA AND/OR VOMITING Nitroglycerin (Nitrostat -) 0.4 mg SL Q5M PRN PRN Reason: FOR CHEST PAIN Pantoprazole Sodium (Protonix Iv) 40 mg IVPUSH BID [facility] Last Admin: 08/03/18 09:40 Dose: 40 mg Senna (Senna -) 2 tab PO HS [facility] Last Admin: 08/02/18 01:28 Dose: 2 tab - Objective Vital Signs: Vital Signs Temperature 98.3 F 08/03/18 12:30 Pulse Rate 60 08/03/18 13:00 Respiratory Rate 16 08/03/18 13:00 Blood Pressure 134/73 08/03/18 13:00 O2 Sat by Pulse Oximetry (%) 100 08/03/18 13:00 Constitutional: Yes: No Distress, Calm, Thin Neck: Yes: Supple Cardiovascular: Yes: Regular Rate and Rhythm Respiratory: Yes: Regular, CTA Bilaterally Gastrointestinal: Yes: Soft, Hypoactive Bowel Sounds Edema: No Labs: CBC, BMP 08/03/18 05:30 08/02/18 05:30 INR, PTT INR 1.06 (0.82-1.09) 08/01/18 14:25 - ....Imaging EKG: Report Reviewed (Tele: NSR) Problem List - Problems (1) Anemia Code(s): D64.9 - ANEMIA, UNSPECIFIED Qualifiers: Iron deficiency anemia type: chronic blood loss (2) Chest pain Code(s): R07.9 - CHEST PAIN, UNSPECIFIED Qualifiers: Chest pain type: precordial pain Qualified Code(s): R07.2 - Precordial pain (3) Diverticulosis Code(s): K57.90 - DVRTCLOS OF INTEST, PART UNSP, W/O PERF OR ABSCESS W/O BLEED (4) GI bleed Code(s): K92.2 - GASTROINTESTINAL HEMORRHAGE, UNSPECIFIED Qualifiers: GI bleed type/associated pathology: anorectal hemorrhage Qualified Code(s) : K62.5 - Hemorrhage of anus and rectum (5) Hemorrhoid Code(s): K64.9 - UNSPECIFIED HEMORRHOIDS Qualifiers: Hemorrhoid type: unspecified Qualified Code(s): K64.9 - Unspecified hemorrhoids (6) Shortness of breath on exertion Code(s): R06.02 - SHORTNESS OF BREATH Assessment/Plan 08/02/2018 Echo: Normal LV and RV size and fcn, borderling cLVH LVEF 60%, tr- mild MR 08/03/2018 EGD and colonoscopy performed today. EGD revealing antral and duodenal bulb erythema, biopsies taken r/o H pylori. Diminutive gastric body polyps likely fundic gland,biopsied. Otherwise normal EGD. Colonoscopy revealing sigmoid diverticulosis with surrounding patchy erythema and erosions, ?segmental colitis associated with diverticular disease vs prep related, biopsies taken. Internal/external hemorrhoids also seen, likely source of intermittent rectal bleeding. See scanned reports for full details. 1. GI bleed due to internal/external hemorrhoids, underlying sigmoid diverticulosis 2. Chest pain and SOB due to anemia since resolved PLAN: 1. Hgb stable post-transfusion 2. F/u pathology, avoid NSAIDs, outpatient capsule endoscopy 3. D/c planning with f/u in office for stress testing r/o ischemia
[2018-08-03 15:50] VITALS: BP 93/66; PULSE 78; TEMP 98.4
--- NOTE | 2018-08-03 16:03 | DS ---
Physical Exam: SUBJECTIVE: Patient seen and examined at the bedside. wants to go home. does not want to stay til tomorrow to monitor his CBC. Made appointment for him to follow up with the covering physician for Dr. Killian (Dr. Demi Elizabeth) for a repeat CBC. Instructed patient and son that patient is not to take any NSAIDS for pain, instead should take Tylenol. OBJECTIVE: Vital Signs Period Temp Pulse Resp BP Sys/Anna Pulse Ox Last 24 Hr 97.8 F-98.6 F 60-83 16-20 93-149/60-85 100-100 PHYSICAL EXAM GENERAL: The patient is awake, alert, and fully oriented, in no acute distress. HEAD: Normal with no signs of trauma. EYES: PERRL, extraocular movements intact, sclera anicteric, conjunctiva clear. No ptosis. ENT: Ears normal, nares patent, oropharynx clear without exudates, moist mucous membranes. NECK: Trachea midline, full range of motion, supple. LUNGS: Breath sounds equal, clear to auscultation bilaterally HEART: Regular rate and rhythm ABDOMEN: Soft, nontender, nondistended, normoactive bowel sounds, no guarding, no rebound, no hepatosplenomegaly, no masses. EXTREMITIES:no edema. NEUROLOGICAL: Normal speech, gait not observed. PSYCH: Normal mood, normal affect. SKIN: Warm, dry, normal turgor, no rashes or lesions noted LABS Laboratory Results - last 24 hr 08/03/18 05:30 WBC 6.8 RBC 3.69 L Hgb 9.5 L Hct 28.6 L MCV 77.4 L MCH 25.7 MCHC 33.2 RDW 17.8 H Plt Count 295 MPV 7.3 L Absolute Neuts (auto) 4.3 Neutrophils % 63.4 Lymphocytes % 16.2 Monocytes % 14.6 H Eosinophils % 4.4 Basophils % 1.4 Nucleated RBC % 0 HOSPITAL COURSE: Date of Admission:08/01/18 Date of Discharge: 08/03/18 Patient is a 62 year old male with a significant past medical history of diverticulosis and hemorrhoids who comes to the ED with reports of 10 days of blood with most bowel movements. Pt stated he has a h/o hemorrhoids and figured that this was the reason for his blood loss. He reports similar symptoms 1 year ago in jun 2017 after starting Mobic for osteoarthritis, which resulted in rectal bleeding, symptoms resolved after discontinuing medication. His last C- scope was in 2013 and revealed diverticulosis and internal hemorrhoids. He was admitted for GI bleed and treated with 3 units of PRBC for his acute blood loss anemia. His hemaglobin and hematocrit are more stable, but will require close monitoring outpatient. An appointment for this WednesdayJuly 08 @ 10:30 was made with his PCP office. Hospital course by problem list: GI: Acute GI bleed/Blood loss anemia presents with symptomatic anemia and hmt/hct 7.2/22. stool occult blood negative. s/p 2 units of prbc with hmg hct now 9.5/28.6 protonix bid to continue as an outpatient. Stop protonix bid when instructed by GI. per GI: "EGD revealing antral and duodenal bulb erythema, biopsies taken r/o H pylori. Diminutive gastric body polyps likely fundic gland,biopsied. Otherwise normal EGD. Colonoscopy revealing sigmoid diverticulosis with surrounding patchy erythema and erosions, ?segmental colitis associated with diverticular disease vs prep related, biopsies taken. Internal/external hemorrhoids also seen , likely source of intermittent rectal bleeding. See scanned reports for full details" Recommendations: Patient to follow up with PCP for CBC on August 05 @ 10;30. appointment made by me. Patient and son instructed to follow up with GI for pathology report Further instructed not to take aleve, motrin, aspirin, or any product that contains NSAIDs. Patient to follow up with his PCP for further hematology testing Follow up for possible capsule endoscopy as an outpatient. Cardiology: hypertension. on no home medications. Started on lopressor here but BP lower today. Will defer anti hypertensives at the moment as he has a follow up with his PCP and this can be addressed as an outpatient. He will follow up with Dr. Suarez for a stress test outpatient. Discharge: All medications called into his pharmacy Signs of bleeding discussed with patient as well as reason to return to the ER Minutes to complete discharge: 50 Discharge Summary Reason For Visit: ANEMIA,CHEST PAIN Current Active Problems Anemia (Acute) Chest pain (Acute) Diverticulosis (Acute) Elevated blood pressure reading (Acute) GI bleed (Acute) Hemorrhoid (Acute) Prophylactic measure (Acute) Shortness of breath on exertion (Acute) Condition: Improved - Instructions Diet, Activity, Other Instructions: Mr. Miller: You were admitted for a GI bleed and you were given blood during your stay. Your hemaglobin is more stable. You also had a colonoscopy today with a EGD also. Here are our recommendations: GI bleed: You had a colonoscopy today and an EGD. Biopsies were taken, therefore, please call the physician for follow up of your results. DO NOT TAKE ASPIRIN, MOTRIN, ALEVE. no NSAIDS. These medications can cause you to re-bleed. You will need a CAPSULE Endoscopy to further evaluate. A capsule endoscopy is done as an outpatient. We need you to follow up with Dr. Demi Elizabeth for a repeat of your CBC on: Wednesday at 10:30. Dr. Demi Elizabeth. [address] [place] [address]. Call the office to confirm this appointment. Cardiology: You will need a stress test. Please call Dr. Suarez to make an appointment. [phone] Hypertension: Please have your BP re checked with your primary care doctor to determine if you still need hypertensive medications. Thank you for allowing us to care for you. Please return to the ER if you experience - dark black stools - shortness of breath - start to have bright red blood per rectum New medications: Protonix 40mg at 7am and 7pm twice per day. Follow up with the GI specialist on when to stop taking this medication. colace, senna. this are stool softener for prevention of hard stools that can irritate hemorrhoids Shanice Rincon [place] [employer] [facility] [phone] Referrals: Dewayne Killian MD [Staff Physician] - (follow up for a CBC -> ) Nalini Umanzor DO [Staff Physician] - (call for an appointment) Edd Suarez MD [Staff Physician] - (call for an appointment) Disposition: HOME - Home Medications Comprehensive Discharge Medication List: Ambulatory Orders Docusate Sodium [Colace -] 100 mg PO BID #90 capsule 08/03/18 Pantoprazole Sodium [Protonix] 40 mg PO BID #60 tablet. 08/03/18 Sennosides [Senna -] 2 tab PO HS #60 tablet 08/03/18 This patient is new to me today: Yes Date on this admission: 08/03/18 Emergency Visit: No Critical Care patient: No - Discharge Referral Referred to [facility] Med P.C.: No
--- NOTE | 2018-08-05 16:55 | PATH ---
Surgical Pathology Report Patient Name: DIAMOND VILLA [facility]. Rec. #: [id number] /Age/Gender: 1955 (Age: 62) / M Account: [id number] Location: 4 W TELEMETRY U Taken: 08/03/2018 Received: 08/03/2018 Reported: 08/05/2018 Physicians: Judi Alejandra MD Specimen(s) Received A: ANTRUM B: GASTRIC POLYP C: SIGMOID COLON Clinical History Rectal bleeding Final Diagnosis A. STOMACH, ANTRUM, BIOPSY: GASTRIC ANTRAL MUCOSA WITH MILD CHRONIC GASTRITIS. IMMUNOHISTOCHEMICAL STAIN FOR H. PYLORI IS NEGATIVE. DETACHED AGGREGATES OF SQUAMOUS EPITHELIUM WITH REACTIVE CELLULAR CHANGES AND FUNGAL FORMS HIGHLIGHTED BY PAS SPECIAL STAIN, MORPHOLOGICALLY CONSISTENT WITH AVERY SPECIES. B. GASTRIC POLYP, BIOPSY: FUNDIC GLAND POLYP. IMMUNOHISTOCHEMICAL STAIN FOR H. PYLORI IS NEGATIVE. C. SIGMOID COLON, BIOPSY: COLONIC MUCOSA WITH PROMINENT LYMPHOID AGGREGATE AND MILD EXTRAVASATION OF RED BLOOD CELLS WITHIN LAMINA PROPRIA. Electronically Signed Nalini Lawrence M.D. Gross Description A. Received in formalin, labeled "antrum" are 3 padilla, irregular portions of soft tissue measuring 0.1-0.3 cm. in greatest dimension. The specimens are submitted in toto in one cassette. B. Received in formalin, labeled "gastric polyp" is a padilla, irregular portion of soft tissue measuring 0.4 cm. in greatest dimension. The specimen is submitted in toto in one cassette. C. Received in formalin, labeled "sigmoid colon" are 4 padilla, irregular portions of soft tissue measuring 0.1-0.3 cm. in greatest dimension. The specimens are submitted in toto in one cassette. MLSZ/08/03/2018 sanml/08/03/2018
== END 2018-08-03 17:37 | disposition home or self-care (01) | DRG 394 ==
LOC: FER 11:22 → J4W 22:30
PROVIDERS: ADMIT Internal Medicine; ATTEND Nurse Practitioner Family
PROC: 30233N1 Transfusion of Nonautologous Red Blood Cells into Peripheral Vein, Percutaneous Approach (ICD-10-PCS; 2018-08-01)
PROC: 0DBN8ZX Excision of Sigmoid Colon, Via Natural or Artificial Opening Endoscopic, Diagnostic (ICD-10-PCS; 2018-08-03)
PROC: 0DB68ZX Excision of Stomach, Via Natural or Artificial Opening Endoscopic, Diagnostic (ICD-10-PCS; principal; 2018-08-03 11:30)
DX: K64.8 Other hemorrhoids (principal); K92.2 Gastrointestinal hemorrhage, unspecified; D62 Acute posthemorrhagic anemia; R07.89 Other chest pain; R03.0 Elevated blood-pressure reading, without diagnosis of hypertension; D64.9 Anemia, unspecified; I10 Essential (primary) hypertension; K57.90 Diverticulosis of intestine, part unspecified, without perforation or abscess without bleeding; Z87.891 Personal history of nicotine dependence; K64.9 Unspecified hemorrhoids; K63.5 Polyp of colon
CPT/HCPCS: 36415; 36430; 36511; 71046-TC-FY; 80053; 80061; 82272; 82550; 83036; 83721; 83735; 83880; 84100; 84484; 85025; 85027; 85610; 86850; 86900; 86901; 86922; 88305-TC; 93005; 93306-TC; 99285-25; J7030; P9038; P9058

== ENCOUNTER 2018-09-06 16:35 | Emergency (ER) | payer BC ==
--- NOTE | 2018-09-06 16:51 | PDOC ---
History of Present Illness - General Chief Complaint: Chest Pain Stated Complaint: SHORTNESS OF BREATH DURING NIGHT AND SOME CHEST Time Seen by Provider: 09/06/18 16:50 - History of Present Illness Initial Comments: 09/06/18 17:32 62yo M recent admission GIB requiring transfusion x2, no other medical hx presents to the ED with 2 days of nocturnal SOB and daytime headaches. Reports he wakes up at night very dyspneic, requiring him to sit up, gasp and need to sit at the side of the bed. This has happened multiple times per night for the last 2 nights. Also reports external cp that is worse when he pushes onto his chest that began while playing golf 3 days ago. No other sxs weakness, bleeding, dark stools Social hx: previous smoker, social drinker PSH: reconstructed jaw, throat biopsy Past History - Past Medical History Allergies/Adverse Reactions: Allergies Allergy/AdvReac Type Severity Reaction Status Date / Time No Known Allergies Allergy Unverified 09/06/18 16:39 Home Medications: Ambulatory Orders Sennosides [Senna -] 2 tab PO HS 09/06/18 Anemia: No Asthma: No Cancer: No Cardiac Disorders: No COPD: No CHF: No Dementia: No Diabetes: No GI Disorders: Yes (RECTAL BLEEDING) Disorders: No HTN: No Hypercholesterolemia: No Liver Disease: No Seizures: No Thyroid Disease: No - Surgical History Abdominal Surgery: No Appendectomy: No Cardiac Surgery: No Cholecystectomy: No Lung Surgery: No Neurologic Surgery: No Orthopedic Surgery: Yes (JAW WIRED DUE TO FX) - Suicide/Smoking/Psychosocial Hx Smoking History: Former smoker Have you smoked in the past 12 months: No Number of Cigarettes Smoked Daily: 0 (2PPD x 10yrs) If you are a former smoker, when did you quit?: 1990 'Breaking Loose' booklet given: 08/01/18 Hx Alcohol Use: Yes (4 glasses of vodka four nights per week) Drug/Substance Use Hx: No Substance Use Type: Alcohol Hx Substance Use Treatment: No Heart Score/ECG Review - History History: Slightly suspicious - Electrocardiogram EKG: Non specific repolarization disturbance - Age Age: 45-65 - Risk Factors Risk Factors Heart Score: Yes Smoking History Based on the list above the patient has:: 1-2 risk factors - Troponin Troponin: </= normal limit - Score Heart Score - Total: 3 *DC/Admit/Observation/Transfer - Discharge Dispostion Condition at time of disposition: Stable - Referrals Referrals: Demi Elizabeth [Primary Care Provider] - - Patient Instructions - Post Discharge Activity
[2018-09-06 16:55] VITALS: TEMP 97.8; BMI 27.3
[2018-09-06 18:20] LABS: BASO % 1.2 % (0-2.0); EOS % 3.4 % (0-4.5); HEMATOCRIT 31.6 % (35.4-49); HEMOGLOBIN 9.8 GM/dl (11.7-16.9); LYMPH % 16.6 % (8-40); MCH 22.7 pg (25.7-33.7); MCHC 30.8 g/dl (32.0-35.9); MEAN CELL VOLUME 73.7 fl (80-96); MEAN PLT VOLUME 7.8 fl (7.5-11.1); MONO % 10.2 % (3.8-10.2); NEUT % 68.6 % (42.8-82.8); PLATELET COUNT 325 K/MM3 (134-434); RBC 4.29 M/mm3 (4.00-5.60); WHITE BLOOD COUNT 8.5 K/mm3 (4.0-10.8)
[2018-09-06 18:22] LABS: ACTIVATED PTT 25.9 SECONDS (25.2-36.5)
[2018-09-06 18:24] LABS: ADD RBC MORPHOLOGY YES
[2018-09-06 18:26] LABS: ALBUMIN 4.1 g/dl (3.4-5.0); ALK PHOS 62 U/L (45-117); ANION GAP 8 MMOL/L (8-16); BILIRUBIN,TOTAL 0.7 mg/dl (0.2-1); BLOOD UREA NITROGEN 12 mg/dl (7-18); CALCIUM 8.9 mg/dl (8.5-10); CHLORIDE 105 mmol/L (98-107); CO2 27 mmol/L (21-32); CREATININE 0.7 mg/dl (0.55-1.3); GLUCOSE,RANDOM 96 mg/dl (74-106); POTASSIUM 4.2 mmol/L (3.5-5.1); SGOT/AST 17 U/L (15-37); SGPT/ALT 16 U/L (13-61); SODIUM 140 mmol/L (136-145); TOT PROT 7.5 g/dl (6.4-8.2)
[2018-09-06 18:27] LABS: INR 1.11 (0.82-1.09); PROTHROMBIN TIME (PATIENT) 12.4 SEC (10.2-13.0)
[2018-09-06 19:24] LABS: ANISOCYTOSIS 1+
[2018-09-06 19:25] LABS: PLATELET ESTIMATE ADEQUATE
[2018-09-06 21:10] VITALS: BP 125/80; PULSE 68
--- NOTE | 2018-09-06 21:23 | PDOC ---
*Physical Exam - Vital Signs Last Vital Signs Temp Pulse Resp BP Pulse Ox 97.8 F 68 16 125/80 98 09/06/18 16:36 09/06/18 21:04 09/06/18 21:04 09/06/18 19:56 09/06/18 21:04 ED Treatment Course - LABORATORY CBC & Chemistry Diagram: 09/06/18 17:55 09/06/18 17:56 - ADDITIONAL ORDERS Additional order review: Laboratory Results 09/06/18 09/06/18 09/06/18 20:37 17:56 17:56 PT with INR INR PTT (Actin FS) D-Dimer < 215 Sodium Potassium Chloride Carbon Dioxide Anion Gap BUN Creatinine Creat Clearance w eGFR Random Glucose Calcium Magnesium Total Bilirubin AST ALT Alkaline Phosphatase Creatine Kinase Troponin I < 0.03 B-Natriuretic Peptide 68.5 Total Protein Albumin 09/06/18 09/06/18 09/06/18 17:56 17:55 17:55 PT with INR 12.4 INR 1.11 PTT (Actin FS) 25.9 D-Dimer Sodium 140 Potassium 4.2 Chloride 105 Carbon Dioxide 27 Anion Gap 8 BUN 12 Creatinine 0.7 Creat Clearance w eGFR 115.04 Random Glucose 96 Calcium 8.9 Magnesium 2.0 Total Bilirubin 0.7 AST 17 ALT 16 Alkaline Phosphatase 62 Creatine Kinase 76 Troponin I B-Natriuretic Peptide Total Protein 7.5 Albumin 4.1 09/06/18 17:55 PT with INR INR PTT (Actin FS) D-Dimer Sodium Potassium Chloride Carbon Dioxide Anion Gap BUN Creatinine Creat Clearance w eGFR Random Glucose Calcium Magnesium Total Bilirubin AST ALT Alkaline Phosphatase Creatine Kinase Troponin I < 0.03 B-Natriuretic Peptide Total Protein Albumin 09/06/18 17:55 RBC 4.29 MCV 73.7 L MCHC 30.8 L RDW 18.0 H MPV 7.8 Neutrophils % 68.6 Lymphocytes % 16.6 Monocytes % 10.2 Eosinophils % 3.4 Basophils % 1.2 Progress Note - Progress Note Progress Note: Care of this patient received from . Patient presented with a few day history of episodes of nocturnal dyspnea, awakening him from sleep. Laboratory evaluation including troponin/BNP/d-dimer all essentially normal. Repeat troponin 3 hours after initial draw also nonelevated Patient discharged without new complaints with plan to follow-up with Dr. Elizabeth (patient will call in the morning to arrange follow-up appointment). Cardiac stress test is already scheduled for approximately 2 weeks from now. Meanwhile, if he experiences any persistent shortness of breath, chest pain or palpitations, he should return to the ER *DC/Admit/Observation/Transfer Diagnosis at time of Disposition: Nocturnal dyspnea - Discharge Dispostion Disposition: HOME Condition at time of disposition: Stable - Referrals Referrals: Demi Elizabeth [Primary Care Provider] - Call tomorrow - Patient Instructions Printed Discharge Instructions: DI for Shortness of Breath Additional Instructions: Call Dr. Elizabeth tomorrow as discussed and follow up as arranged Return to ER if you have persistent, severe shortness of breath or develop chest pain - Post Discharge Activity
--- NOTE | 2018-09-07 09:42 | EKG ---
Test Reason : Blood Pressure : / mmHG Vent. Rate : 067 BPM Atrial Rate : 067 BPM P-R Int : 146 ms QRS Dur : 084 ms QT Int : 436 ms P-R-T Axes : 064 -20 -02 degrees QTc Int : 460 ms NORMAL SINUS RHYTHM NORMAL ECG WHEN COMPARED WITH ECG OF 01-AUG-2018 11:41, CRITERIA FOR SEPTAL INFARCT ARE NO LONGER PRESENT Confirmed by LOUIE MILLAN, JAMISON ([id number]) on 09/07/2018 9:42:34 AM Referred By: RIGOBERTO ROSARIO Confirmed By:JAMISON PALMA MD
== END 2018-09-06 21:42 | disposition home or self-care (01) ==
LOC: FER 16:35
DX: R06.09 Other forms of dyspnea (principal)
CPT/HCPCS: 36415; 71045-TC-FY; 80053; 82550; 83735; 83880; 84484; 85025; 85379; 85610; 85730; 93005; 99284-25

== ENCOUNTER 2020-06-17 14:12 | Emergency (ER) | payer BC ==
[2020-06-17] MEDS ORDERED: SODIUM CHLORIDE 0.9% 1000 ML INFUS.BAG IV ONE (14:15)
[2020-06-17 14:28] VITALS: TEMP 98; BMI 28.5
[2020-06-17 14:33] VITALS: BP 169/102; PULSE 80
[2020-06-17 14:57] LABS: BASO % 1.6 % (0-2.0); EOS % 3.7 % (0-4.5); HEMATOCRIT 37.8 % (35.4-49); LYMPH % 20.5 % (8-40); MCH 26.1 pg (25.7-33.7); MCHC 31.8 g/dl (32.0-35.9); MEAN CELL VOLUME 82.3 fl (80-96); MEAN PLT VOLUME 8.3 fl (7.5-11.1); MONO % 12.5 % (3.8-10.2); NEUT % 61.7 % (42.8-82.8); PLATELET COUNT 293 K/MM3 (134-434); RBC 4.59 M/mm3 (4.00-5.60); WHITE BLOOD COUNT 7.6 K/mm3 (4.0-10.8)
[2020-06-17 15:07] LABS: ALBUMIN 4.4 g/dl (3.4-5.0); BILIRUBIN,TOTAL 0.7 mg/dl (0.2-1); CALCIUM 9.2 mg/dl (8.5-10); CREATININE 0.8 mg/dl (0.55-1.3); POTASSIUM 4.1 mmol/L (3.5-5.1); TOT PROT 7.7 g/dl (6.4-8.2)
[2020-06-17 15:08] LABS: INR 1.13 (0.82-1.09); PROTHROMBIN TIME (PATIENT) 12.5 SEC (10.2-13.0)
== END 2020-06-17 16:50 | disposition home or self-care (01) ==
LOC: FER 14:12
DX: R42 Dizziness and giddiness (principal)
CPT/HCPCS: 36415; 71045-TC-FY; 80053; 82272; 84484; 85025; 85610; 85730; 86850; 86900; 86901; 93005; 99285-25